=== PATIENT | male | born 1990 | race Caucasian/White ===

== ENCOUNTER 2023-06-06 14:01 | Outpatient (CLI) | payer MEDICAID ==
--- NOTE | 2023-06-06 20:33 | SLEEP CARE CONSULTATION ---
Information from patient questionnaire entered by Amira Lemus. I have reviewed and concur with the information entered by Amira Lemus. This document represents the service I personally performed and the decisions made by me, Patrick Garcia MD, [facility]. History of Present Illness Service Date and Time: 06/06/2023 1401 Reason for Visit: New patient Chief Complaint: reports: Insomnia, Unrefreshed sleep, Excessive daytime sleepiness, Fatigue, Frequent awakenings at night Date of Onset: LONG I CAN REMEMBER Usual bedtime: 8PM-2AM Time it takes to fall asleep: 15MIN-2HRS Snores at night: Yes Observed to quit breathing while asleep: No Sleeps alone due to snoring: No Number of times waking at night: 1-2 Reasons for waking at night: reports: Bathroom, Other ([place]OKING) Toss, Turn, or Twitch while sleeping: Yes Recalls having dreams: Yes Usually gets out of bed at: 8AM-12PM Feels refreshed in the morning: No Morning headache: Yes Sleepy or fatigued during the day: Yes Ever fallen asleep while driving: No Takes day naps: Yes Dreams during day naps: Yes Prior sleep studies: No Additional HPI information: I had the pleasure of seeing Mr. Infante today regarding the possibility of him having a sleep disorder. As you know, he is a 32-year-old gentleman who complains of frequent awakenings, unrefreshed sleep, excessive daytime sleepiness, and insomnia all his adult life. The patient tells me that he normally goes to bed around 8 pm 2 am, and it takes him approximately 1 2 hours to fall asleep. He has been told that he snores loudly and irregularly at night. He has never been observed to stop breathing in his sleep. However, he sleeps alone. He can recall waking up on the average of 1 - 2 times during the night. Most of the time he wakes up because of having to use the bathroom. He has awakened occasionally because of his own snoring, choking, and having to gasp for air. There is not a lot of tossing and turning in his sleep. No somniloquy (sleep talking) or somnambulism (sleep walking). Generally, he can recall having dreams. In the morning he usually gets up out of the bed around 8 a.m. noon not feeling refreshed nor rested. He usually has a morning headache. During the day he complains of feeling l sleepy and fatigued. His score on [place] Sleepiness Scale is 15 out of 24. He never has fallen asleep while driving nor has had any accident due to sleepiness. He usually takes naps during the day. He complains of restless leg syndrome. He reports having impaired concentration during the day. - Parasomnia Symptoms Ever been unable to move upon waking from sleep: No Walks in sleep: No Talks in sleep: No Ever acted out dreams in sleep: No Ever felt weak in the knees when startled or emotional: Yes Bothered by creepy, crawly, restless sensations in legs: Yes Problems with memory or concentration: Yes Subjective Initial [place] Sleepiness Scale score: 15 (06/06/23) Past Medical History Past Medical History: reports: Anxiety, Depression, Other (BIPOLAR, PTSD) Social History The patient's occupation is a [employer]. Patient is Single and lives in . Have you smoked in the past 12 months: No Years of smokin Quit date: 2017 Alcohol use: No Caffeine use: Yes Caffeine amount and frequency: 1-2 CUPS 1-2 X WEEK Family History Family history of sleep disordered breathing: Yes Family Hx Sleep Apnea: Father: Snoring Allergies and Home Medications Known drug allergies: No Drug allergies reviewed: Yes Home medication list reviewed: Yes Review of Systems Weight gain over past 5 years: 40 Cardiovascular: denies: high blood pressure, palpitations, chest pain, irregular heart rate or pulse, leg or foot swelling, have to sleep sitting up, other Respiratory: reports: shortness of breath Gastrointestinal: reports: heartburn, diarrhea, abdominal pain Urinary: denies: incontinence, frequency, urgency, impotence, other Neurological: denies: headaches, seizure, head trauma, disorientation, speech dysfunction, gait or balance problems, fainting or unconsciousness, other Psychiatric: reports: anxiety, depression Ear/Nose/Throat: reports: nasal congestion, sinus problems, nose bleeds, dry mouth/throat Endocrine: reports: sluggishness, too hot or cold Musculoskeletal: reports: back pain Immunologic: denies: sneezing, rash, itching, allergies to food or environment, other Physical Exam Vital signs obtained and entered by: AMIRA Bro MA Blood Pressure: 137/87 (LEFT ARM) Cuff size: long Heart Rate: 119 O2 Saturation: 96 Height: 6 ft Weight: 319 lb 9.6 oz Body Mass Index: 43.3 BMI Classification: Morbidly Obese Neck circumference: 24.5 Mood/affect: Normal HEENT: No craniofacial malformation Nostrils: patent to airflow Turbinates: normal Septum: midline Mouth and throat: narrow oropharynx Soft palate: long Hard palate: normal Uvula: normal Uvula visualization: 25% Mallampati Class III Tongue: normal in size Tonsils: small Chin and jaw: normal size and position Neck: normal w/o lymphadenopathy or thyromegaly Heart: regular rate and rhythm Lungs: clear bilaterally Extremities: no edema or clubbing Neurologic: intact Impression and Plan IMPRESSION: 1. Obstructive Sleep Apnea-Hypopnea Syndrome, as suggested by history of loud and irregular snoring, unrefreshed sleep, morning headache, cognitive impairment, and daytime hypersomnolence. Narrow oropharynx and obesity are common predisposing factors for obstructive sleep apnea-hypopnea syndrome. I recommend proceeding to polysomnography to confirm the diagnosis and to assess severity. If he has significant sleep disordered breathing, a manual CPAP titration study will also be performed to find the optimal treatment pressure. I informed the patient of what the sleep studies involve and after some discussion, he agreed to proceed. Plan: 1. Schedule polysomnography + manual CPAP titration study and return in 1 to 2 weeks after the study to discuss result and initiate therapy. 2. Avoid long distance driving or when feeling sleepy. 3. Avoid alcohol, sedative and muscle relaxant around bedtime. 4. Attempt to lose weight. Counseling Topics: Weight control Follow up with Sleep Care in: 1-2 months Follow up recommended for: Weight management Visit Type: In Office Time Spent with Patient (minutes): 15 Provider Statement: I spent 100% of the Face to Face Visit with the patient with greater than 50% spent counseling the patient and coordination of care.
[2023-06-06 20:34] VITALS: BP 137/87; O2SAT 96
== END 2023-06-06 14:02 | disposition home or self-care (01) ==
LOC: SC 14:01
PROVIDERS: ATTEND Internal Medicine Pulmonary Disease
DX: G47.10 Hypersomnia, unspecified (principal); R06.83 Snoring; G47.8 Other sleep disorders; R51.9 Headache, unspecified; R41.89 Other symptoms and signs involving cognitive functions and awareness; E66.01 Morbid (severe) obesity due to excess calories; Z68.41 Body mass index [BMI] 40.0-44.9, adult; Z87.891 Personal history of nicotine dependence
CPT/HCPCS: 99202; 99212

== ENCOUNTER 2023-07-11 10:39 | Outpatient (CLI) | payer MEDICAID ==
--- NOTE | 2023-07-11 12:12 | SLEEP CARE CONSULTATION ---
Information from patient questionnaire entered by Amira Lemus. I have reviewed and concur with the information entered by Amira Lemus. This document represents the service I personally performed and the decisions made by me, Patrick Garcia MD, [facility]. History of Present Illness Service Date and Time: 07/11/2023 1039 Initial [place] Sleepiness Scale score: 15 (06/06/23) Current [place] Sleepiness Scale score: 15 (07/11/23) Additional HPI information: Mr. Ifnante returned for follow up of the sleep study he had on 07/02/2023. The polysomnography showed that the sleep architecture was abnormal for sleep fragmentation and reduced amount of time spent in REM and slow wave sleep (N3). Respiratory monitoring showed very severe obstructive sleep apnea-hypopnea (AHI = 64.0) associated with frequent arousals, oxyhemoglobin desaturation and moderate hypoxia (rodrigo oxygen saturation of 78%). Baseline oxygen saturation was normal. The patient slept mostly supine (supine AHI = 70.6; non-supine = 4.74). Snore was moderate to loud in intensity. There was no significant periodic leg movement of sleep. Cardiac rhythm was normal sinus rhythm without significant arrhythmia. No abnormal behavior (parasomnia) observed during the night. The patient was informed of these findings. I explained to him the pathophysiology behind obstructive sleep apnea. We then spent quite a bit of time discussing different treatment options. For mild obstructive sleep apnea, surgery and oral appliance are alternatives to nasal CPAP therapy but in moderate or severe cases, nasal CPAP is the most effective and reliable treatment. Weight loss in an obese individual is strongly recommended. After some discussion, he opted to go with the nasal CPAP therapy. I explained to him how CPAP machine works and what to expect when using the machine. He will return for a manual CPAP/BiPAP titration study. Sleep Study - Results Type of Sleep Study: Polysomnography (COMPLETED ON 07/01/2023) Prior sleep studies: No Allergies and Home Medications Drug allergies reviewed: Yes Home medication list reviewed: Yes Review of Systems Review of systems same as previous: Yes (NO CHANGE) Physical Exam Vital signs obtained and entered by: AMIRA Bro MA Blood Pressure: 144/100 (RIGHT ARM) Cuff size: regular Heart Rate: 108 O2 Saturation: 95 Height: 6 ft Weight: 323 lb Body Mass Index: 43.8 BMI Classification: Morbidly Obese Impression and Plan IMPRESSION: 1. Obstructive Sleep Apnea-Hypopnea Syndrome, very severe, associated with moderate hypoxemia. Obviously this is the cause of the patients symptoms of unrefreshed sleep, and excessive daytime sleepiness. As mentioned above, the patient will return for the manual CPAP/BiPAP titration study. PLAN: 1. Schedule a manual CPAP/BiPAP titration study. I will order him the equipment after the sleep study. 2. Attempt to lose weight and avoid alcohol consumption near bedtime. 3. The patient is again cautioned about driving until his sleepiness completely resolves on the CPAP therapy. 4. Return for follow up after one month of using the CPAP. Counseling Topics: Weight control Follow up with Sleep Care in: 1-2 months Follow up recommended for: Weight management Plan: titration study Visit Type: In Office Time Spent with Patient (minutes): 15 Provider Statement: I spent 100% of the Face to Face Visit with the patient with greater than 50% spent counseling the patient and coordination of care.
[2023-07-11 12:18] VITALS: BP 144/100; O2SAT 95
== END 2023-07-11 10:40 | disposition home or self-care (01) ==
LOC: SC 10:39
PROVIDERS: ATTEND Internal Medicine Pulmonary Disease
DX: G47.33 Obstructive sleep apnea (adult) (pediatric) (principal); E66.01 Morbid (severe) obesity due to excess calories; Z68.41 Body mass index [BMI] 40.0-44.9, adult
CPT/HCPCS: 99212

== ENCOUNTER 2023-07-26 20:06 | Outpatient (CLI) | payer MEDICAID | END 2023-07-26 20:07 | disposition home or self-care (01) | LOC: SC 20:06 | PROVIDERS: ATTEND Internal Medicine Pulmonary Disease | DX: G47.33 Obstructive sleep apnea (adult) (pediatric) (principal); G47.61 Periodic limb movement disorder | CPT/HCPCS: 95811 ==

== ENCOUNTER 2023-10-10 09:50 | Outpatient (CLI) | payer MEDICAID ==
--- NOTE | 2023-10-10 10:35 | SLEEP CARE CONSULTATION ---
Information from patient questionnaire entered by Amira Lemus. I have reviewed and concur with the information entered by Amira Lemus. This document represents the service I personally performed and the decisions made by me, Patrick Garcia MD, [facility]. History of Present Illness Service Date and Time: 10/10/2023 0950 Initial [place] Sleepiness Scale score: 15 (06/06/23) Current [place] Sleepiness Scale score: 6 (10/10/23) Additional HPI information: HPI: Mr. Infante returned for follow up of the manual CPAP/BiPAP titration study he had on 07/26/23. The polysomnography showed that CPAP was initiated at 7 cmH2O and titrated up to CPAP at 12 cmH2O. CPAP at 10 cmH2O appeared to be optimal (AHI of 4.5 per hour on the pressure) with the patient wearing a nasal mask. There was supine REM sleep on the pressure. Oxygen saturation was mildly low due to the frequent residual respiratory events associated with full face masks. The sleep architecture was abnormal for sleep fragmentation and reduced amount of time spent in REM and slow wave sleep (N3). There was mild periodic leg movement of sleep not contributing to the sleep fragmentation. Cardiac rhythm was normal sinus rhythm without significant arrhythmia with occasional sinus tachycardia. No abnormal behavior (parasomnia) observed during the night. Mask used was a [employer] Viva nasal mask. The patient was informed of these findings. I explained to him that his current autoCPAP setting is adequate. The compliance data show usage in 19 out of the past 30 nights, averaging 4 hours a night. The residual AHI is 1.9 and average air leak is 4.4 L/minute. He complains that the current pressure setting of 8 12 cmH2O is too high during the night. He has switched from a full face mask to nasal pillows. Sleep Study - Results Type of Sleep Study: Polysomnography (COMPLETED ON 07/01/2023 TITRATION COMPLETED 07/26/23) Prior sleep studies: No Allergies and Home Medications Drug allergies reviewed: Yes Home medication list reviewed: Yes Allergy and home medication list: Allergies No Known Drug Allergies Allergy (Verified 10/06/23 09:12) Review of Systems Review of systems same as previous: Yes (NO CHANGE) Physical Exam Vital signs obtained and entered by: AMIRA Bro MA Blood Pressure: 155/96 (LEFT ARM) Cuff size: long Heart Rate: 97 O2 Saturation: 98 Height: 6 ft Weight: 316 lb Body Mass Index: 42.8 BMI Classification: Morbidly Obese Impression and Plan IMPRESSION: 1. Obstructive Sleep Apnea-Hypopnea Syndrome, very severe, adequately controlled with CPAP at 10 cmH2O. He has not had good compliance yet but reports significant improvement on the treatment. For him comfort, I will lower the pressure range to 8 10 cmH2O. PLAN: 1. AutoCPAP set to 8 - 10 cm H2O. 2. Attempt to lose weight and avoid alcohol consumption near bedtime. 3. Check thyroid function if not already done. 4. The patient is again cautioned about driving until his sleepiness com pletely resolves on the CPAP therapy. 5. Return in one month for follow up. I will assess his response and compliance at that time. Adjust device pressure to (cmH2O): 8 - 10 Counseling Topics: Weight control Follow up with Sleep Care in: 1-2 months Follow up recommended for: Weight management Visit Type: In Office Time Spent with Patient (minutes): 15 Provider Statement: I spent 100% of the Face to Face Visit with the patient with greater than 50% spent counseling the patient and coordination of care.
[2023-10-10 10:36] VITALS: BP 155/96; O2SAT 98
== END 2023-10-10 09:51 | disposition home or self-care (01) ==
LOC: SC 09:50
PROVIDERS: ATTEND Internal Medicine Pulmonary Disease
DX: G47.33 Obstructive sleep apnea (adult) (pediatric) (principal); E66.01 Morbid (severe) obesity due to excess calories; Z68.41 Body mass index [BMI] 40.0-44.9, adult
CPT/HCPCS: 99212

== ENCOUNTER 2023-11-07 10:02 | Outpatient (CLI) | payer MEDICAID ==
--- NOTE | 2023-11-07 10:32 | SLEEP CARE CONSULTATION ---
Information from patient questionnaire entered by Amira Lemus. I have reviewed and concur with the information entered by Amira Lemus. This document represents the service I personally performed and the decisions made by me, Patrick Garcia MD, [facility]. History of Present Illness Service Date and Time: 11/07/2023 1002 Reason for follow up: one month (F/U) Equipment type: CPAP (RESMED) Prior sleep studies: No Type of Sleep Study: Polysomnography (COMPLETED ON 07/01/2023) HPI additional information: Mr. Infante returned for follow up of CPAP therapy. He was diagnosed with very severe obstructive sleep apnea-hypopnea. The compliance data show usage in 15 out of the past 30 nights, averaging 2 hours a night. The residual AHI is 0.8 and average air leak is 0 L/minute. He wears a nasal mask. He said the pressure is still too high after I lowered it to 8 10 cmH2O. He complains of water condensation in the hose and mask. He has not adjusted the humidity or tube temperature. He also reports air coming up from his stomach. Sleep Study - Results Type of Sleep Study: Polysomnography (COMPLETED ON 07/01/2023) Prior sleep studies: No CPAP Compliance Data - Data Reviewed with Patient Average duration of nightly device use: 1HR 57MINS Compliance rate %: 7 (10/03/23-11/01/23) Current pressure setting (cmH2O): 8-10 Average residual AHI: 0.8 Subjective Initial [place] Sleepiness Scale score: 15 (06/06/23) Current [place] Sleepiness Scale score: 6 (11/07/23) Allergies and Home Medications Drug allergies reviewed: Yes Home medication list reviewed: Yes Allergy and home medication list: Allergies No Known Drug Allergies Allergy (Verified 11/03/23 09:32) Review of Systems Review of systems same as previous: Yes (NO CHANGE) Physical Exam Vital signs obtained and entered by: AMIRA Bro MA Blood Pressure: 143/97 (LEFT ARM) Cuff size: long Heart Rate: 88 O2 Saturation: 95 Height: 6 ft Weight: 316 lb Body Mass Index: 42.8 BMI Classification: Morbidly Obese Impression and Plan IMPRESSION: 1. Obstructive Sleep Apnea-Hypopnea Syndrome, very severe. The patient is not using his machine much because he still feels that the pressure is too high and experiences aerophagia. For water condensation in the hose, I recommend lowering the humidity and increasing the tube heat. PLAN: 1. AutoCPAP lowered to 4 - 8 cm H2O. 2. Attempt to lose weight and avoid alcohol consumption near bedtime. 3. Adjust the heated humidifier settings. 4. Use the CPAP at least 4 hours a night and 21 nights this coming month. 5. Return in one month for follow up. I will reassess his response and compliance at that time. Adjust device pressure to (cmH2O): 4-8 Counseling Topics: Weight loss health impact, Weight control Follow up with Sleep Care in: 1-2 months Follow up recommended for: Weight management Visit Type: In Office Time Spent with Patient (minutes): 15 Provider Statement: I spent 100% of the Face to Face Visit with the patient with greater than 50% spent counseling the patient and coordination of care.
[2023-11-07 10:34] VITALS: BP 143/97; O2SAT 95
== END 2023-11-07 10:03 | disposition home or self-care (01) ==
LOC: SC 10:02
PROVIDERS: ATTEND Internal Medicine Pulmonary Disease
DX: G47.33 Obstructive sleep apnea (adult) (pediatric) (principal); E66.01 Morbid (severe) obesity due to excess calories; Z68.41 Body mass index [BMI] 40.0-44.9, adult
CPT/HCPCS: 99212

== ENCOUNTER 2023-12-05 10:50 | Outpatient (CLI) | payer MEDICAID ==
--- NOTE | 2023-12-05 12:30 | SLEEP CARE CONSULTATION ---
Information from patient questionnaire entered by Amira Lemus. I have reviewed and concur with the information entered by Amira Lemus. This document represents the service I personally performed and the decisions made by me, Patrick Garcia MD, [facility]. History of Present Illness Service Date and Time: 12/05/2023 1050 Reason for follow up: one month (F/U) Equipment type: CPAP (RESMED) Prior sleep studies: No Type of Sleep Study: Polysomnography (COMPLETED ON 07/01/2023 TITRATION COMPLETED 07/26/23) HPI additional information: Mr. Infante was called for follow up of CPAP therapy. He was diagnosed with very severe obstructive sleep apnea-hypopnea. The compliance data show usage in 58 out of the past 90 nights, averaging 3 hours a night. The residual AHI is 3.1 and average air leak is 2 L/minute. He wears a nasal mask. He said the pressure is still too high after I lowered it to 6 - 8 cmH2O. He complains of difficulty breathing which he attributes to having asthma. Sleep Study - Results Type of Sleep Study: Polysomnography (COMPLETED ON 07/01/2023 TITRATION COMPLETED 07/26/23) Prior sleep studies: No CPAP Compliance Data - Data Reviewed with Patient Average duration of nightly device use: 2HRS 43MINS Compliance rate %: 17 (10/31/23-11/29/23) Current pressure setting (cmH2O): 4-8 Average residual AHI: 2.5 Subjective Initial [place] Sleepiness Scale score: 15 (06/06/23) Current [place] Sleepiness Scale score: 9 (12/05/23) Allergies and Home Medications Drug allergies reviewed: Yes Home medication list reviewed: Yes Allergy and home medication list: Allergies No Known Drug Allergies Allergy (Verified 11/30/23 11:22) Review of Systems Review of systems same as previous: Yes Physical Exam Vital signs obtained and entered by: AMIRA Bro MA Height: 6 ft (PER PT) Weight: 316 lb (PER PT) Body Mass Index: 42.8 BMI Classification: Morbidly Obese Impression and Plan IMPRESSION: 1. Obstructive Sleep Apnea-Hypopnea Syndrome, very severe. The patient is unable to use his machine much because of difficulty exhaling. I will switch him to a BiPAP. PLAN: 1. Prescription made for a BiPAP set at 12/6 cm H2O. 2. Attempt to lose weight and avoid alcohol consumption near bedtime. 3. Return for follow up after one month of using the BiPAP Counseling Topics: Weight control Prescriptions: BiPAP Follow up with Sleep Care in: 1-2 months Visit Type: Telehealth Video Video Type: Doximity Patient Location: Home Location of Provider: Other (car) Patient agrees and consents to this telehealth visit type: Yes Patient agrees to have their insurance billed: Yes Time Spent with Patient (minutes): 15 Provider Statement: I spent 100% of the Telehealth Video Call with the patient with greater than 50% spent counseling the patient and coordination of care.
== END 2023-12-05 10:51 | disposition home or self-care (01) ==
LOC: SC 10:50
PROVIDERS: ATTEND Internal Medicine Pulmonary Disease
DX: G47.33 Obstructive sleep apnea (adult) (pediatric) (principal); E66.01 Morbid (severe) obesity due to excess calories; Z68.41 Body mass index [BMI] 40.0-44.9, adult
CPT/HCPCS: 99442